=== PATIENT | male | born 1975 | race Caucasian/White ===

== ENCOUNTER 2020-07-04 19:01 | Emergency (ER) | payer OTHER, BC, SELFPAY ==
--- NOTE | ~2020-07-04 | CT_ITS ---
CT lumbar spine wo con DATE: 07/04/2020 20:41 INDICATION: Low back pain. Patient denies injury. TECHNIQUE: Noncontrast axial images through the lumbar and lumbosacral area; sagittal and coronal rec onstructions. Exam dose: 1146.01 mGy-cm total exam DLP. COMPARISON: None FINDINGS: Incidentally noted is mild horseshoe kidney deformity. There is a transverse band of soft t issue connecting the lower renal poles across the midline. There is straightening of the lumbar spine. There is primary lumbar spinal stenosis. There is bulging disc posteriorly at L4-5. No fracture or bone destruction, spondylolysis or spondylolisthesis. IMPRESSION: Primary lumbar spinal stenosis Posterior disc bulging at L4-5 Or shift kidney Reviewed, dictated and finalized at [facility] Reviewed, dictated and finalized at [facility].
[2020-07-04 19:32] VITALS: BP 133/75; PULSE 95; RESP 18; TEMP 36.9; O2SAT 100
--- NOTE | 2020-07-04 20:31 | ED.BACK ---
HPI - Back Pain/Injury General Chief Complaint: Back Pain/Injury Stated Complaint: back pain Time Seen by Provider: 07/04/20 20:08 Source: patient Mode of arrival: wheelchair Limitations: no limitations History of Present Illness HPI Narrative: This is a 44-year-old male that presents the emergency department for low back pain today. Reports this started after bending over to put on his shoes earlier. Reports the pain is sharp and radiates into his hips. He took Tylenol with little relief. Denies fever, saddle anesthesia, or bowel/bladder incontinence. Related Data Allergies Allergy/AdvReac Type Severity Reaction Status Date / Time metaxalone Allergy Unknown NAUSEA, Verified 07/04/20 19:36 VOMITING, DIAPHORESIS Review of Systems Review of Systems: Narrative: CONSTITUTIONAL: Denies fever SKIN: Denies rash or itching. MUSCULOSKELETAL: Reports back pain, joint pain, and myalgia. NEUROLOGIC: Denies numbness, or weakness. All systems reviewed & are unremarkable except as noted in HPI and below PMFSH Past Medical History Medical History (Updated 07/04/20 @ 22:02 by Alisa Garcia PA-C) History of anxiety History of depression History of gastroesophageal reflux (GERD) Social History Social History (Updated 07/04/20 @ 20:33 by Alisa Garcia PA-C) Substance use: current Substance use type: marijuana Exam Narrative: Exam Narrative: GENERAL: Well-appearing, well-nourished, and in no acute distress. HEAD: Normocephalic, atraumatic. EYES: EOMI. CHEST: Clear to auscultation. No respiratory distress. No wheezes rales or rhonchi HEART: Regular rate and rhythm. No murmur heard. Normal peripheral pulses. BACK: No midline spinal tenderness EXTREMITIES: Normal range of motion. No edema. Strength equal bilateral lower extremities (5/5) SKIN: Warm, dry, no rash. NEURO: No focal deficits. Alert and oriented x3. PSYCH: Normal mood and affect Course Vital Signs Vital signs: Vital Signs Temperature 98.5 F 07/04/20 19:32 Pulse Rate 95 07/04/20 19:32 Respiratory Rate 18 07/04/20 19:32 Blood Pressure 133/75 07/04/20 19:32 Pulse Oximetry 100 07/04/20 19:32 Temperature 98.5 F 07/04/20 19:32 Pulse Rate 95 07/04/20 19:32 Respiratory Rate 18 07/04/20 19:32 Blood Pressure 133/75 07/04/20 19:32 Pulse Oximetry 100 07/04/20 19:32 MDM - Back Pain/Injury MDM Narrative Medical decision making narrative: Patient presents to the ER for low back pain that started today. No known injury or trauma. Reports the pain was making it difficult to ambulate. Patient is neurologically intact. Denies any saddle anesthesia or bowel/bladder incontinence. Lumbar spine CT shows lumbar spinal stenosis and L4/5 bulging disc. Patient given muscle relaxer, anti-inflammatory and tramadol with improvement. Also will be started on steroid taper. He will be given a short course of Tramadol for home. Patient is stable and felt appropriate for further outpatient evaluation. He was given warnings to return to the ER Imaging Data Radiologist's impression: ITS Impressions Lumbar Spine CT 07/04/20 20:47 IMPRESSION: Primary lumbar spinal stenosis Posterior disc bulging at L4-5 Or shift kidney Critical Care Time Critical Care Time Critical Care Time: No Discharge Plan Discharge Clinical Impression: Lumbar radiculopathy Patient Disposition: Home, Self-Care Condition: Stable Instructions: Acute Low Back Pain (ED) Additional Instructions: Return to the ER if you experience weakness, numbness, bowel/bladder incontinence, or any other symptoms that are concerning to you Rest, use ice/heat, take anti-inflammatories (Aleve, Ibuprofen, Naproxen, etc) or Tylenol as needed for pain. Tramadol as needed for pain. Take steroid taper as prescribed Follow up with your primary care doctor and spine surgeon Prescriptions: New methylprednisolone 4 mg tablets,dose pack See Rx
[2020-07-04] MEDS: KETOROLAC (*BKC) 60 MG/2 ML VIAL IM (21:05)
[2020-07-04] MEDS: CYCLOBENZAPRINE HCL 10 MG TABLET PO (21:05)
[2020-07-04] MEDS: traMADol HCL 50 MG TABLET PO (22:07)
[2020-07-04 22:55] VITALS: BP 162/91; PULSE 86; RESP 16; TEMP 37.1; O2SAT 100
== END 2020-07-04 22:56 | disposition home or self-care (01) ==
PROVIDERS: Emergency Provider Emergency Medicine; PCP Family Medicine
DX: M54.16 Radiculopathy, lumbar region (principal); K21.9 Gastro-esophageal reflux disease without esophagitis
CPT/HCPCS: 72131; 96372; 99284; A9270; J1100; J1885

== ENCOUNTER 2021-12-17 08:41 | Outpatient (CLI) | payer BC, SELFPAY ==
--- NOTE | ~2021-12-17 | XR_ITS ---
EXAMINATION:[id number] DATE: 12/17/2021 08:57 INDICATION: Neck pain TECHNIQUE: AP, lateral, and odontoid views of the cervical spine are provided. COMPARISON: 08/07/2014 FINDINGS: There are changes of interval anterior fusion with interbody device placement from C4 throu gh C6. Alignment is normal. The odontoid is intact. No fracture is identified. There is mild loss of vertebral body height at C4 and C5, possibly related to surgical change. There is mild loss of interv ertebral disc space height at C3-4 and C5-6. Prevertebral soft tissues are normal. IMPRESSION: 1. Interval anterior fusion from C4 through C6 without acute findings. Reviewed, dictated and finalized at [facility] [employer]
== END 2021-12-17 08:42 | disposition home or self-care (01) ==
PROVIDERS: PCP Internal Medicine; Visit Provider Nurse Practitioner
DX: R42 Dizziness and giddiness (principal); Z98.1 Arthrodesis status
CPT/HCPCS: 72040

== ENCOUNTER 2021-12-28 01:19 | Day surgery (SDC) | payer BC, SELFPAY ==
[2021-12-17 10:52] VITALS: BMI 30.9
[2021-12-28 07:55] VITALS: BP 134/81; PULSE 84; RESP 16; TEMP 36.6; O2SAT 99; BMI 29.1
[2021-12-28] MEDS: LACTATED RINGERS 1,000 ML 150 ML IV CONT (08:11)
--- NOTE | 2021-12-28 08:26 | WPDGICN ---
Assessment and Plan Assessment and plan (1) Encounter for screening colonoscopy: Code(s): Z12.11 - Encounter for screening for malignant neoplasm of colon Status: Acute Assessment and Plan: Patient presents today for screening colonoscopy. Appears to be at average risk for colon polyps. GI Consult Note Consult date/time: 12/28/21 08:26 HPI: Randy Talbert is a 46 year old male Presents for screening colonoscopy. Patient's current weight appetite bowel movements are normal. He denies abdominal pain. He has had no bleeding. Family history is noncontributory. Patient presents today for screening exam. Review of Systems Review of Systems: All systems reviewed & are unremarkable except as noted in HPI and below PMFSH Past Medical History Medical History NASIR (generalized anxiety disorder) History of anxiety History of depression History of gastroesophageal reflux (GERD) Mood disorder Tobacco abuse Surgical History Surgical History H/O nasal septoplasty H/O neck surgery Family History Family History Father Diabetes mellitus Hypertension Mother Diabetes mellitus Hypertension Breast cancer Depression Sibling Diabetes mellitus Depression Social History Social History Social History: Smoking packs per day: 1 Smoking cigarettes per day: 20.0 Years smoked: 25 Smoking pack-years: 25.00 Smoking status: Current every day smoker Tobacco type: cigarettes Second hand tobacco smoke exposure: Yes Alcohol intake: current Alcohol use details: one time yearly Substance use: current Substance use type: marijuana Last use: occasionally Living arrangements: with family Gender identity (if verbalized by the patient): Male Sexual Orientation (if Verbalized by the Patient): Straight or Heterosexual Spiritual care concerns: No Meds Home Medications and Allergies Home Medications Medication Instructions Recorded Confirmed Type atorvastatin 20 mg tablet 20 mg PO DAILY #90 tablet 11/23/21 12/28/21 Rx bupropion HCl 150 mg 24 hr tablet, 150 mg PO QAM #90 tablet 11/23/21 12/28/21 Rx extended release pantoprazole 40 mg tablet,delayed 40 mg PO QAM #90 tablet 11/23/21 12/28/21 Rx release alprazolam 0.5 mg tablet 0.5 mg PO DAILY #30 tablet 12/07/21 12/28/21 Rx Allergies Allergy/AdvReac Type Severity Reaction Status Date / Time metaxalone AdvReac Intermediate NAUSEA, Verified 12/28/21 07:54 VOMITING, DIAPHORESIS Vital Signs Vital Signs - 24 hr 12/28/21 07:55 Temperature 97.8 F Pulse Rate 84 Respiratory Rate 16 Blood Pressure 134/81 Pulse Oximetry 99 Exam Narrative: Physical exam reveals patient to be alert. Vital signs stable. HEENT exam is unremarkable. Patient is anicteric. Lungs are clear to auscultation and percussion. Heart is without murmur or extra sounds. Abdomen bowel sounds are present soft nontender with no organomegaly. Digital external rectal exam is normal.
--- NOTE | 2021-12-28 08:39 | WPDANESEPPF ---
Anes - Initial Pre Proc Eval Procedure: Operation Date: 12/28/21 09:15 Proposed Procedures p Screening Colonoscopy - Napoleon Ashford MD Date/Time: 12/28/21 08:39 Surgeon: Napoleon Ashford MD Pre Op Diagnosis: neoplasm screening Patient Data Age: 46 Gender: M Height: 1.78 m Weight: 92.1 kg Last Vital Signs Temp 97.8 F 12/28/21 07:55 Pulse 84 12/28/21 07:55 Resp 16 12/28/21 07:55 BP 134/81 12/28/21 07:55 Pulse Ox 99 12/28/21 07:55 Allergies Allergy/AdvReac Type Severity Reaction Status Date / Time metaxalone AdvReac Intermediate NAUSEA, Verified 12/28/21 07:54 VOMITING, DIAPHORESIS Home Medications Medication Instructions Recorded Confirmed Type atorvastatin 20 mg tablet 20 mg PO DAILY #90 tablet 11/23/21 12/28/21 Rx bupropion HCl 150 mg 24 hr tablet, 150 mg PO QAM #90 tablet 11/23/21 12/28/21 Rx extended release pantoprazole 40 mg tablet,delayed 40 mg PO QAM #90 tablet 11/23/21 12/28/21 Rx release alprazolam 0.5 mg tablet 0.5 mg PO DAILY #30 tablet 12/07/21 12/28/21 Rx Patient hx anesthesia problems: none Family hx anesthesia problems: none Results Review: All pre-operative results and documents have been reviewed as part of the pre-operative evaluation. [facility] Past Medical History Medical History NASIR (generalized anxiety disorder) History of anxiety History of depression History of gastroesophageal reflux (GERD) Mood disorder Tobacco abuse Surgical History Surgical History H/O nasal septoplasty H/O neck surgery Family History Family History Father Diabetes mellitus Hypertension Mother Diabetes mellitus Hypertension Breast cancer Depression Sibling Diabetes mellitus Depression Social History Social History Social History: Smoking packs per day: 1 Smoking cigarettes per day: 20.0 Years smoked: 25 Smoking pack-years: 25.00 Smoking status: Current every day smoker Tobacco type: cigarettes Second hand tobacco smoke exposure: Yes Alcohol intake: current Alcohol use details: one time yearly Substance use: current Substance use type: marijuana Last use: occasionally Living arrangements: with family Gender identity (if verbalized by the patient): Male Sexual Orientation (if Verbalized by the Patient): Straight or Heterosexual Spiritual care concerns: No Anes - Eval Final PreProcedure Day of Procedure 12/28/21 08:39 Patient weight: obese Heart: regular rate and rhythm Lungs: clear to auscultation Airway: Mallampati scale class III Neurological: alert and oriented Last oral intake: >/= 8 hours ASA classification: III Emergent: no Anesthetic plan: proceed Anesthesia type and monitoring: general GIVS and standard monitoring Results Review: All pre-operative results and documents have been reviewed as part of the pre-operative evaluation. Informed Consent: The patient's anesthetic plan and its attendant risks and benefits were discussed with the patient/family/POA. Questions were solicited and answers provided to the satisfaction of the patient/family/POA.
[2021-12-28 09:26] VITALS: BP 97/57; PULSE 68; RESP 20; O2SAT 97
[2021-12-28 09:36] VITALS: BP 105/70; PULSE 79; RESP 19; O2SAT 100
[2021-12-28 09:46] VITALS: BP 134/93; PULSE 67; RESP 17; O2SAT 99
== END 2021-12-28 09:52 | disposition home or self-care (01) ==
PROVIDERS: PCP Internal Medicine; Visit Provider Internal Medicine Gastroenterology
PROC: 0DJD8ZZ Inspection of Lower Intestinal Tract, Via Natural or Artificial Opening Endoscopic (ICD-10-PCS; CPT 45378; principal; 2021-12-28 09:15)
DX: Z12.11 Encounter for screening for malignant neoplasm of colon (principal); K64.8 Other hemorrhoids; F41.1 Generalized anxiety disorder; K21.9 Gastro-esophageal reflux disease without esophagitis; F17.210 Nicotine dependence, cigarettes, uncomplicated; F12.90 Cannabis use, unspecified, uncomplicated
CPT/HCPCS: 45378; J2704; J7120

== ENCOUNTER 2022-05-19 13:44 | Outpatient (CLI) | payer BC, SELFPAY ==
--- NOTE | ~2022-05-19 | XR_ITS ---
EXAMINATION: XR chest 2V 05/19/2022 14:04 INDICATION: Tobacco use. Nocturnal cough. PROCEDURE: 2 view chest COMPARISON: Comparison to multiple prior studies sequentially, with oldest reviewed study dated 09/30. FINDINGS: The lungs are clear. The cardiomediastinal silhouette is within normal limits. There are no pleural effusions. There is no pneumothorax suspected. IMPRESSION: 1: NO ACUTE CARDIOPULMONARY DISEASE. Reviewed, dictated and finalized at [facility].
== END 2022-05-19 13:45 | disposition home or self-care (01) ==
PROVIDERS: PCP Internal Medicine; Visit Provider Internal Medicine Cardiovascular Disease
DX: R05.8 Other specified cough (principal); F17.210 Nicotine dependence, cigarettes, uncomplicated
CPT/HCPCS: 71046

== ENCOUNTER 2023-04-07 09:53 | Outpatient (CLI) | payer BC, SELFPAY ==
--- NOTE | 2023-04-07 11:00 | NEURO_ITS ---
Impression: Patient reports a history of bilateral hand numbness. # Mild bilateral Carpal Tunnel Syndrome. # Very mild left ulnar neuropathy. # Evidence of right ulnar neuropathy. # Normal needle/EMG exam. # Clinical correlation recommended. Nerve Conduction Studies Anti Sensory Summary Table Stim Site NR Peak (ms) P-T Amp (?V) Site1 Site2 Delta-P (ms) Dist (cm) Barrington (m/s) Left Median Anti Sensory (2-3nd Digit) Wrist 3.9 67.4 Wrist 2-3nd Digit 3.9 14.0 36 Wrist 4.5 40.3 Wrist 2-3nd Digit 3.9 14.0 36 Right Median Anti Sensory (2-3nd Digit) Wrist 4.1 40.0 Wrist 2-3nd Digit 4.1 14.0 34 Wrist 4.5 39.2 Wrist 2-3nd Digit 4.1 14.0 34 Left Radial Anti Sensory (Base 1st Digit) Wrist 2.0 33.0 Wrist Base 1st Digit 2.0 0.0 Right Radial Anti Sensory (Base 1st Digit) Wrist 2.2 34.3 Wrist Base 1st Digit 2.2 0.0 Left Ulnar Anti Sensory (5th Digit) Wrist 2.2 8.8 Wrist 5th Digit 2.2 14.0 64 Right Ulnar Anti Sensory (5th Digit) Wrist 2.0 18.0 Wrist 5th Digit 2.0 14.0 70 Motor Summary Table Stim Site NR Onset (ms) O-P Amp (mV) Site1 Site2 Delta-0 (ms) Dist (cm) Barrington (m/s) Left Median Motor (Abd Poll Brev) Wrist 4.1 3.8 Elbow Wrist 4.3 22.0 51 Elbow 8.4 3.7 Right Median Motor (Abd Poll Brev) Wrist 4.1 4.5 Elbow Wrist 4.3 22.0 51 Elbow 8.4 4.2 Left Ulnar Motor (Abd Dig Minimi) Wrist 2.8 7.4 A Elbow Wrist 5.4 26.0 48 A Elbow 8.2 7.1 B Elbow Wrist 3.5 18.0 51 B Elbow 6.3 7.2 Right Ulnar Motor (Abd Dig Minimi) Wrist 2.7 8.7 A Elbow Wrist 5.8 27.0 47 A Elbow 8.5 7.5 B Elbow Wrist 4.1 18.0 44 B Elbow 6.8 7.1 F Wave Studies NR F-Lat (ms) L-R F-Lat (ms) Left Median (Mrkrs) (Abd Poll Brev) 30.47 0.00 Right Median (Mrkrs) (Abd Poll Brev) 30.47 0.00 Left Ulnar (Mrkrs) (Abd Dig Min) 30.12 0.00 Right Ulnar (Mrkrs) (Abd Dig Min) 30.12 0.00 EMG Side Muscle Nerve Root Ins Act Fibs Amp Dur Recrt Comment Right 1stDorInt Ulnar C8-T1 Nml Nml Nml Nml Nml Right Ext Indicis Radial (Post Int) C7-8 Nml Nml Nml Nml Nml Right Ext Digitorum Radial (Post Int) C7-8 Nml Nml Nml Nml Nml Right BrachioRad Radial C5-6 Nml Nml Nml Nml Nml Right PronatorTeres Median C6-7 Nml Nml Nml Nml Nml Right Abd Poll Brev Median C8-T1 Nml Nml Nml Nml Nml Left 1stDorInt Ulnar C8-T1 Nml Nml Nml Nml Nml Left Ext Indicis Radial (Post Int) C7-8 Nml Nml Nml Nml Nml Left Ext Digitorum Radial (Post Int) C7-8 Nml Nml Nml Nml Nml Left BrachioRad Radial C5-6 Nml Nml Nml Nml Nml Left PronatorTeres Median C6-7 Nml Nml Nml Nml Nml Left Abd Poll Brev Median C8-T1 Nml Nml Nml Nml Nml MTDD
== END 2023-04-07 09:54 | disposition home or self-care (01) ==
PROVIDERS: PCP Internal Medicine; Visit Provider Nurse Practitioner
DX: G56.03 Carpal tunnel syndrome, bilateral upper limbs (principal); G56.23 Lesion of ulnar nerve, bilateral upper limbs
CPT/HCPCS: 95886; 95911

== ENCOUNTER 2023-06-29 09:04 | Outpatient (CLI) | payer BC, SELFPAY ==
--- NOTE | 2023-06-29 14:49 | WPDPFTINT ---
PFT Procedure Performed PFT Procedure Performed Plethysmography (Lung Vol) Diffusing Cap (DLCO) Flow Vol Loop Spirometry w/o Bronchodil PFT Interpretation This is a pulmonary function test with spirometry, plethysmography and diffusing capacity. The test was performed and results interpreted in accordance with the 2019 and 2005 ATS/ERS Task Force guidelines respectively using the Global Lung Function Initiative-2012 reference equations. Patient demonstrated good effort and cooperation. Reproducibility criteria were met. The quality of the spirometry maneuver was Grade A. Findings: Spirometry: The contour the inspiratory flow tracing is normal. The contour the inspiratory flow tracing is truncated. The FVC is 3.91 L, 76% predicted. The a FEV1 is 3.00 L, 74% predicted. The FEV1: FVC ratio 77%. Plethysmography: The total lung capacity is 5.47 L, 79% predicted. The functional residual capacity is 2.77 L, 78% predicted. The residual volume is 1.40 L, 72% predicted. Diffusing capacity: The diffusing capacity unadjusted for hemoglobin and carboxyhemoglobin is 19.3, 61% predicted. The diffusing capacity adjusted for alveolar volume is 4.34, 93% predicted. Impression: The spirometry is normal without evidence of an obstructive abnormality. The lung volumes are normal without evidence of a restrictive abnormality. The FVC and FEV1 are mildly decreased without an obstructive or restrictive abnormality. This is an abnormal but nonspecific finding. The diffusing capacity unadjusted for hemoglobin and carboxyhemoglobin is mildly decreased and normalizes when corrected for alveolar volume. There are no prior studies for comparison
== END 2023-06-29 09:05 | disposition home or self-care (01) ==
PROVIDERS: PCP Internal Medicine; Visit Provider Internal Medicine Cardiovascular Disease
DX: R06.02 Shortness of breath (principal)
CPT/HCPCS: 94375; 94726; 94729

== ENCOUNTER 2023-08-05 10:34 | Outpatient (CLI) | payer BC, SELFPAY ==
[2023-08-05 11:12] LABS: Basophils Absolute Auto 0.1 K/mm3 (0.0-0.1); Basophils Percent Auto 0.7 % (0.2-1.2); Eosinophils Absolute Auto 0.1 K/mm3 (0-0.3); Eosinophils Percent Auto 1.6 % (0-4.4); Hematocrit 48.2 % (42.0-52.0); Hemoglobin 16.6 g/dL (14.0-18.0); Immature Granulocyte Absolute 0.03 K/mm3 (0.00-0.031); Immature Granulocyte Percent A 0.4 % (0-0.5); Lymphocytes Absolute Auto 0.79 K/mm3 (0.9-3.2); Lymphocytes Percent Auto 10.5 % (18.3-44.2); Mean Corpuscular HGB Conc 34.4 g/dl (32-36); Mean Corpuscular Hemoglobin 31.9 pg (26-34); Mean Corpuscular Volume 92.5 fl (80-100); Mean Platelet Volume 9.4 fl (7.4-10.4); Monocytes Absolute Auto 1.3 K/mm3 (0.1-0.6); Monocytes Percent Auto 17.2 % (2.6-8.5); Neutrophils Absolute Auto 5.2 K/mm3 (1.3-6.7); Neutrophils Percent Auto 69.6 % (45.5-73.1); Platelet Count Result 352 k/mm3 (150-375); Red Blood Count 5.21 M/mm3 (4.6-6.20); Red Cell Distribution Width 13.2 % (11.5-14.5); White Blood Count 7.5 K/mm3 (4.5-10.0)
[2023-08-05 11:24] LABS: Alanine Aminotransferase 32 U/L (6-50); Albumin Level 4.4 g/dL (3.5-5.1); Alkaline Phosphatase 93 U/L (38-126); Anion Gap 5 mmol/L (8-16); Aspartate Amino Transferase 31 U/L (17-59); Bilirubin,Total 0.7 mg/dL (0.2-1.3); Blood Urea Nitrogen 12 mg/dL (9-20); Calcium 9.4 mg/dL (8.4-10.2); Carbon Dioxide 30 mmol/L (22-30); Chloride 102 mmol/L (98-107); Cholesterol 155 mg/dL (0-200); Estimated Glomerular Filt Rate > 60; Glucose 98 mg/dL (65-110); HDL Direct 35 mg/dL; Sodium 137 mmol/L (137-145); Triglycerides 87 mg/dL (<150)
[2023-08-05 11:34] LABS: LDL Cholesterol Direct 94 mg/dL
[2023-08-07 19:20] LABS: Amphetamines NEGATIVE ng/mL (<500); Barbiturates NEGATIVE ng/mL (<300); Benzodiazepines NEGATIVE ng/mL (<100); Cocaine Metabolite NEGATIVE ng/mL (<150); Marijuana Metabolite NEGATIVE ng/mL (<20); Methadone Metabolite NEGATIVE ng/mL (<100); Opiates NEGATIVE ng/mL (<100); Oxidant NEGATIVE mcg/mL (<200); pH 6.4 (4.5-9.0)
== END 2023-08-05 10:35 | disposition home or self-care (01) ==
LOC: ANHLAB 10:35
PROVIDERS: PCP Internal Medicine; Visit Provider Nurse Practitioner
DX: E78.5 Hyperlipidemia, unspecified (principal); Z13.29 Encounter for screening for other suspected endocrine disorder; Z79.899 Other long term (current) drug therapy
CPT/HCPCS: 36415; 80053; 80061; 80307; 85025

== ENCOUNTER 2024-06-19 11:09 | Outpatient (CLI) | payer BC, SELFPAY ==
[2024-06-19 15:12] LABS: Basophils Absolute Auto 0.1 K/mm3 (0.0-0.1); Basophils Percent Auto 0.7 % (0.2-1.2); Eosinophils Absolute Auto 0.2 K/mm3 (0-0.3); Eosinophils Percent Auto 2.9 % (0-4.4); Hematocrit 49.9 % (42.0-52.0); Hemoglobin 16.9 g/dL (14.0-18.0); Immature Granulocyte Absolute 0.01 K/mm3 (0.00-0.031); Immature Granulocyte Percent A 0.1 % (0-0.5); Lymphocytes Absolute Auto 1.95 K/mm3 (0.9-3.2); Lymphocytes Percent Auto 26.5 % (18.3-44.2); Mean Corpuscular HGB Conc 33.9 g/dl (32-36); Mean Corpuscular Hemoglobin 31.8 pg (26-34); Mean Corpuscular Volume 93.8 fl (80-100); Monocytes Absolute Auto 0.9 K/mm3 (0.1-0.6); Monocytes Percent Auto 12.7 % (2.6-8.5); Neutrophils Absolute Auto 4.2 K/mm3 (1.3-6.7); Neutrophils Percent Auto 57.1 % (45.5-73.1); Platelet Count Result 366 k/mm3 (150-375); Red Blood Count 5.32 M/mm3 (4.6-6.20); Red Cell Distribution Width 13.1 % (11.5-14.5); White Blood Count 7.4 K/mm3 (4.5-10.0)
[2024-06-19 16:30] LABS: Hemoglobin A1C 5.6 % (<5.7)
[2024-06-19 16:46] LABS: Alanine Aminotransferase 26 U/L (6-50); Albumin Level 4.5 g/dL (3.5-5.1); Alkaline Phosphatase 119 U/L (38-126); Anion Gap 9 mmol/L (4-12); Aspartate Amino Transferase 69 U/L (17-59); Bilirubin,Total 1.1 mg/dL (0.2-1.3); Blood Urea Nitrogen 14 mg/dL (9-20); Calcium 9.8 mg/dL (8.4-10.2); Carbon Dioxide 32 mmol/L (22-30); Chloride 97 mmol/L (98-107); Cholesterol 140 mg/dL (0-200); Estimated Glomerular Filt Rate > 60; Glucose 86 mg/dL (65-110); HDL Direct 32 mg/dL; Potassium 4.5 mmol/L (3.4-5.0); Sodium 138 mmol/L (137-145); Triglycerides 77 mg/dL (<150)
[2024-06-19 16:56] LABS: LDL Cholesterol Direct 85 mg/dL
== END 2024-06-19 11:10 | disposition home or self-care (01) ==
LOC: ANHGOSHLAB 11:11
PROVIDERS: PCP Internal Medicine; Visit Provider Nurse Practitioner
DX: Z13.29 Encounter for screening for other suspected endocrine disorder (principal); E78.5 Hyperlipidemia, unspecified; R73.9 Hyperglycemia, unspecified
CPT/HCPCS: 36415; 80053; 80061; 83036; 85025

== ENCOUNTER 2025-09-17 11:28 | Outpatient (CLI) | payer BC, SELFPAY ==
[2025-09-17 12:24] LABS: Hematocrit 48.5 % (42.0-52.0); Hemoglobin 16.5 g/dL (14.0-18.0); Immature Granulocyte Percent A 0.4 % (0-0.5); Lymphocytes Absolute Auto 1.40 K/mm3 (0.9-3.2); Mean Corpuscular HGB Conc 34.0 g/dl (32-36); Mean Corpuscular Hemoglobin 31.7 pg (26-34); Mean Corpuscular Volume 93.1 fl (80-100); Nucleated Red Blood Cells Absolute Auto 0.000 K/mm3 (0.0-0.012); Nucleated Red Blood Cells Perc 0.0 % (0.0-0.2); Platelet Count Result 328 k/mm3 (150-375); Red Blood Count 5.21 M/mm3 (4.6-6.20); White Blood Count 7.7 K/mm3 (4.5-10.0)
[2025-09-17 12:39] LABS: Alanine Aminotransferase 24 U/L (6-50); Albumin Level 4.5 g/dL (3.5-5.1); Alkaline Phosphatase 112 U/L (38-126); Anion Gap 5 mmol/L (4-12); Aspartate Amino Transferase 27 U/L (17-59); Bilirubin,Total 1.1 mg/dL (0.2-1.3); Blood Urea Nitrogen 12 mg/dL (9-20); Calcium 9.6 mg/dL (8.4-10.2); Carbon Dioxide 32 mmol/L (22-30); Chloride 101 mmol/L (98-107); Cholesterol 134 mg/dL (0-200); Estimated Glomerular Filt Rate > 60; Glucose 93 mg/dL (65-110); HDL Direct 37 mg/dL; Potassium 3.8 mmol/L (3.4-5.0); Sodium 138 mmol/L (137-145); Total Protein 7.3 g/dL (6.3-8.2); Triglycerides 68 mg/dL (<150)
[2025-09-17 13:11] LABS: Prostate Specific Antigen 1.2 ng/mL (< OR = 4.0)
== END 2025-09-17 11:29 | disposition home or self-care (01) ==
PROVIDERS: PCP Internal Medicine; Visit Provider Nurse Practitioner
DX: E78.2 Mixed hyperlipidemia (principal); Z13.29 Encounter for screening for other suspected endocrine disorder; Z12.5 Encounter for screening for malignant neoplasm of prostate
CPT/HCPCS: 36415; 80053; 80061; 84153; 85025; G0103